=== PATIENT | female | born 1970 | race Caucasian/White ===

== ENCOUNTER 2024-10-26 21:07 | Emergency (ER) | payer OTHER, SELFPAY ==
[2024-10-26] VITALS (8 sets, daily range): BP systolic 191–258; BP diastolic 121–172; PULSE 107–119; RESP 16–20; TEMP 36.6–36.8; O2SAT 98–99; BMI 24.5
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
[2024-10-26] MEDS: TET/DIPHTH/PERT-ADULT 0.5ML SYRINGE 0.5 ML IM (21:29)
[2024-10-26] MEDS: METOCLOPRAMIDE HCL 10MG/2ML VIAL 5 MG IVP (21:29)
[2024-10-26] MEDS: ACETAMINOPHEN 1,000MG/100ML VIAL 1000 MG IV (21:29)
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
[2024-10-26 21:56] LABS: Basophils % 0.5 % (0.1-2.0); Eosinophils % 0.1 % (0.1-12.0); Hematocrit 42.2 % (37.0-47.0); Hemoglobin 15.3 g/dL (12.2-16.2); Lymphocytes # 1.5 K/mm3 (0.7-4.5); Lymphocytes % 16.8 % (10-50); Mean Corpuscular HGB Conc 36.3 g/dL (31.8-35.4); Mean Corpuscular Hemoglobin 28.3 pg (27.0-31.2); Monocytes # 0.3 K/mm3 (0.1-1.0); Monocytes % 3.8 % (1.7-9.3); Neutrophils # 6.9 K/mm3 (1.8-7.8); Neutrophils % 78.1 % (37.0-80.0); Platelet Count 240 K/mm3 (142-424); Red Blood Count 5.41 M/mm3 (4.20-5.40); Red Cell Distribution Width 12.2 % (11.5-17.5); White Blood Count 8.9 K/mm3 (4.8-10.8)
[2024-10-26] MEDS: HYDRALAZINE 20MG/ML VIAL 10 MG IV (22:07)
[2024-10-26 22:09] LABS: Albumin Level 4.2 g/dl (3.5-5.0); Chloride 100 mmol/L (98-107); Potassium 3.4 mmoL/L (3.5-5.1); Sodium 134 mmol/L (136-145)
--- NOTE | 2024-10-26 22:10 | ECG_ITS ---
APPROVED REPORT Exam: Resting ECG HR:103 bpm ECG Measurements Heart Rate 103 AXES NM 167 P 59 QRSd 90 QRS 52 QT 351 T 57 QTc 411 Conclusion SINUS TACHYCARDIA NONSPECIFIC T-WAVE ABNORMALITY ABNORMAL RHYTHM ECG UNCONFIRMED REPORT Electronically signed by : LILA STRONG, 10/26/2024 23:02:58
[2024-10-26 22:12] LABS: Alanine Aminotransferase 32 U/L (12-78); Albumin/Globulin Ratio 1.4 (1.1-1.8); Alkaline Phosphatase 126 U/L (38-126); Anion Gap 10.4 mEq/L (5-15); Aspartate Amino Transferase 33 U/L (14-36); Bilirubin,Total 1.2 mg/dl (0.2-1.3); Blood Urea Nitrogen 6 mg/dl (7-17); Carbon Dioxide 27 mmol/L (22.0-30.0); Creatinine Clearance Estimated 122 mL/min (50-200); Estimated Glomerular Filt Rate 104 ml/min (>60); GFR (African American) 126 ML/MIN (>60); Globulin 3.1 g/dL (1.3-3.2); Total Protein,Serum 7.3 g/dl (6.3-8.2)
[2024-10-26 22:13] LABS: Glucose 352 mg/dl (74-100)
--- NOTE | 2024-10-26 22:42 | PC.NURSE ---
housekeeping room attendant notified of need for PO medications
[2024-10-26] MEDS: DOXAZOSIN MESYLATE 1 MG TABLET 4 MG PO (22:49)
[2024-10-26] MEDS: IRBESARTAN 150MG TAB 150 MG PO (22:49)
[2024-10-26] MEDS: CARVEDILOL 25MG TABLET 25 MG PO (22:49)
[2024-10-26] MEDS: hydroCHLOROthiazide 25MG TABLET 25 MG PO (22:49)
[2024-10-26 23:19] LABS: Activated Partial Thrombo Time 26.2 seconds (22.8-30.6); INR 0.95 (0.9-1.1); Prothrombin Time 10.7 seconds (10.1-12.5)
--- NOTE | 2024-10-26 23:26 | PC.NURSE ---
No neurological changes noted. Pt resting comfortably in bed
--- NOTE | 2024-10-26 23:41 | PC.NURSE ---
Patient IV removed. Catheter tip intact. Bleeding controlled.
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
== END 2024-10-26 23:42 | disposition home or self-care (01) ==
PROVIDERS: Emergency Provider Emergency Medicine
DX: S01.01XA Laceration without foreign body of scalp, initial encounter (principal); Z23 Encounter for immunization; R51.9 Headache, unspecified; Y00.XXXA Assault by blunt object, initial encounter; Y93.89 Activity, other specified; Y92.009 Unspecified place in unspecified non-institutional (private) residence as the place of occurrence of the external cause
CPT/HCPCS: 70450; 72125; 80053; 85025; 85610; 85730; 90471; 90715; 93005; 96374; 96375; 99284; J0131; J0360; J2765

== ENCOUNTER 2024-10-27 02:57 | Emergency (ER) | payer OTHER, SELFPAY ==
[2024-10-27 02:57] VITALS: BP 126/89; PULSE 82; RESP 16; TEMP 36.6; O2SAT 98; BMI 24.5
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
[2024-10-27] MEDS: ONDANSETRON 4MG ODT 4 MG SL (03:04)
[2024-10-27 04:03] VITALS: BP 125/80; PULSE 93; RESP 16; TEMP 36.6; O2SAT 98
--- NOTE | 2024-10-27 04:11 | PC.NURSE ---
Patient states she does not have ride home. I was unable to find patient a ride, so I told patient she was welcome to stay in the room and sleep on sit in the lobby, whichever she preferred. Patient stormed out of the room in anger and left.
== END 2024-10-27 04:10 | disposition home or self-care (01) ==
PROVIDERS: Emergency Provider Emergency Medicine
DX: S06.0XAA Concussion with loss of consciousness status unknown, initial encounter (principal); R11.2 Nausea with vomiting, unspecified; R42 Dizziness and giddiness; Y09 Assault by unspecified means
CPT/HCPCS: 70450; 99284; Q0162